=== PATIENT | female | born 1955 | race Caucasian/White ===

== ENCOUNTER → 2020-06-25 10:27 | Outpatient (CLI) | payer BC, OTHER, SELFPAY ==
--- NOTE | 2020-06-25 | DI.RAD.S_ITS ---
PROCEDURE: FL BARIUM SWALLOW W SPEECH INDICATIONS: Syncope and collapse,Unspecified foreign body in l COMPARISON: None. TECHNIQUE: Examination was conducted in conjunction with speech pathology per standard protocol. In the lateral projection, filming was performed of the patient swallowing. AP projection filming may also be performed with patient swallowing. COMPARISON: FINDINGS: Function: The oral preparatory phase appears normal, with proper containment. The subsequent oral propulsive appears delayed. No laryngotracheal penetration or aspiration. No pathologic vallecular pooling. Morphology: No cricopharyngeal bar is identified. No cervical esophageal webs. No Zenker's diverticulum. No strictures. IMPRESSION: No aspiration identified. Dictated by: Tomi Peguero M.D. on 06/25/2020 at 15:28 Approved by: Tomi Peguero M.D. on 06/25/2020 at 15:29
--- NOTE | 2020-06-25 16:32 | ST.SWALLOW ---
Visit Care Team Role Provider Type Michelle Nuñez DO Primary Care Provider Non-Staff Referring Provider Specialty: Family Practice Address: [address], [place], [address] Email: Bryant Leyva MD Attending Provider Non-Staff Specialty: Pulmonology Address: [address] [place] [address] [address], [place], [address] Email: Modified Barium Swallow Study DITCH INSPECTOR Modified Barium Swallow Study Start: 06/25/20 12:41 Freq: Status: Active Protocol: Document 06/25/20 12:47 LNK (Rec: 06/25/20 13:34 LNK [id number]) Modified Barium Swallow Study Total Time Visit Start Time 11:30 Visit Stop Time 12:00 Total Visit Minutes 30 Visit Information Visit Number 1 Plan of Care Dates 06/25/20-09/25/20 Insurance Information Medicare/ for Life Referral Referring Physician Dr. Bryant Leyva Reason for Referral dysphagia/choking Setting Setting Outpatient Care Patient Information Identification Type Name,Date of Patient History Pt is a 65 year old female referred for Modified Barium Swallow Study (MBSS). She was referred by her field sales consultant , Bryant Leyva MD. According to the rerords provided and interview with the pt, she has a history if choking on foods over the past year or more. Once, while eating steak , she needed to have the Heimlich procedure done to expel the steak. On another occasion, she was eating eggs, began choking and passed out. There have been instances where the pt reported coughing so hard she becomes incontinent of urine and stool . Other medical history included shortness of breath and wheezing, treated with inhalers. pt does not feel the inhalers are effective. During pt interview she noted that she has GERD and takes omneprozol. 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 Research described a high Mallapati score being highly correlated with GERD. pt also has a history of smoking x 15 years ago; she stopped smoking 30 years ago. Subjective Observations Pt was seated in the fluoroscopy chair. Instructions and procedures were described to the pt who agreed to proceed. Patient Positioning Position View A/P Imaging Lateral View Textures Administered Trials Presented Thin Liquid via Spoon,Thin Liquid via Cup,Thin Liquid via Straw,Pudding Thick Liquid via Spoon,Regular Textures, Barium Tablet Oral Phase Source: MBSIMP (TM) (C) Bolus Specific Scoring Grid Lip Closure WFL Tongue Control During Bolus Hold WFL Bolus Prep/Mastication WFL Bolus Transport/Lingual Motion WFL A/P Lingual Propulsion Delay Yes: Inconsistent. Increased bulk resulted in A/P propulsion delay Number of Seconds Delayed (seconds) ~1-3s Oral Residue Minimal Impairment Residue Clearing WFL Nasal Regurgitation No Additional Oral Phase Observations Informal observation indicated structures and function to be grossly WFL. Pharyngeal Phase Source: MBSIMP (TM) (C) Bolus Specific Scoring Grid Delayed Initiation of Pharyngeal Swallow Yes: premature spillage to the pyriform sinuses past open airway Number of Seconds Delayed (seconds) ~1+s Soft Palate Elevation WFL Tongue Base Strength/Range of Motion Moderate Impairment Residue Along the Tongue Base Yes: trace to minimal Clearance of Residue Along Tongue Base WFL Laryngeal Elevation Moderate Impairment Anterior Hyoid Movement Moderate Impairment Epiglottic Range of Motion Moderate Impairment Vallecular Residue Yes Clearance of Vallecular Residue Mild Impairment Pharyngeal Stripping Wave Minimal Impairment Posterior Pharyngeal Wall Residue Yes Clearance of Posterior Pharyngeal Wall Mild Impairment Residue Upper Esophageal Sphincter Opening WFL Residue in the Pyriform Sinuses Yes Clearance of Residue in the Pyriform Mild Impairment Sinuses Esophageal Clearance Upright Position WFL Pharyngoesophageal Backflow Observed No Additional Pharyngeal Phase Observations Premature spillage from the oral cavity to the pyriform sinuses was observed frequently. Residue/pooling was observed in the valeculla, the tongue base, the posterior pharyngeal wall and the pyriform sinuses. The bolus head would flow to and past the valeculla over an open airway to the pyriform sinuses before the swallow was initiated. Tongue base weakness was observed with incomplete elevation of the larynx and minimal forward movement of the hyoid, which leads to minimal to incomplete inversion of the epiglottis. Inconsistent epiglottal inversion was seen with the tip of the epiglottis against the posterior pharyngeal wall, restricting range of the epiglottic inversion, diminishing airway protection. No airway penetration or aspiration was observed. The pt did c/o shortness of breath throughout the assessment. A/P View Textures Administered Trials Presented Thin Liquid via Cup,Barium Tablet A/P View Observations Additional Observations Pt had significant difficulty with the tablet in the A-P position. She did not have difficulty in the lateral position. For the A-P view, the pt placed the tablet in her mouth, took water and was unable to propel the tablet to the pharynx. She tried 2 times without success, then threw her head back in an effort to force the tablet toward the pharynx. Once the tablet was in the pharynx, she was able to swallow it without difficulty. Clinical Impressions Findings The pt presented with moderately severe pharyngeal phase swallow characterized by premature spillage to the pyriform sinuses over an open airway, weak tongue base and incomplete hyolaryngeal movement up and forward. This resulted in incomplete and inconsistent epiglottic inversion, increasing risk of aspiration. The pt became more short of breath as the evaluation continued, also increasing aspiration risk. At the end of the MBSS, she had significant difficulty with A- P propulsion of the tablet resulting in her head toss backward to move the tablet to the pharynx. This has potential to cause aspiration, especially if her airway remains open. It is unknown if the pt's hx of class IV Mallapati airway and/or her large tongue is related to her pharyngeal function and/or her choking incidents. She noted that her choking incidents occur about once every couple of months. No change in diet is recommended. Linguapharyngeal exercises are recommended to increase strength for base of tongue compression and hyolaryngeal elevation with subsequent improvement of epiglottic inversion/airway protection. Patient Appropriate for Therapy Yes Recommendations Aspiration Precautions Recommended Precautions Small Bites/Sips,Effortful Swallow,Double Swallow Additional Precautions eat slowly, mindfully without distractions Treatment Plan Therapy Recommendations Outpatient Speech Therapy,Base of Tongue Exercises, Compensatory Strategy Education Compensatory Strategies Recommendations Double Swallow,Supraglottic Swallow Short Term Goals Pt education regarding the results of her MBSS and the anatomy and physiology of swallowing as well as different aspiration risks. The pt will participate in tongue base exercises daily in order to strengthen and elevate the hyolaryngeal system for safer swallowing. The pt will consume foods/ liquids mindfully with reduced distractions (talking, laughing, watching tv, etc) to increase awareness of swallowing during PO intake. Half-Way Goals The pt will report minimal to no incidents of choking.
== END ==
PROVIDERS: PCP Family Medicine; Referring Provider Family Medicine; Visit Provider Internal Medicine Pulmonary Disease
DX: R55 Syncope and collapse (principal); T17.308A Unspecified foreign body in larynx causing other injury, initial encounter
CPT/HCPCS: 74230; 92611

== ENCOUNTER → 2023-12-31 11:59 | Outpatient (CLI) | payer MEDICARE, OTHER, SELFPAY ==
--- NOTE | 2023-12-31 12:01 | DI.CT.S_ITS ---
PROCEDURE: CT HEAD/BRAIN WO CON INDICATIONS: Dizziness and giddiness TECHNIQUE: Noncontrast 4.5 mm thick angled axial sections acquired from the foramen magnum to the vertex, with coronal and sagittal reformats. For radiation dose reduction, the following was used: automated exposure control, adjustment of mA and/or kV according to patient size. COMPARISON: None. FINDINGS: Image quality: Diagnostic. CSF spaces: Basal cisterns are patent. No extra-axial fluid collections. Ventricles are normal in size and shape. Brain: No midline shift. No intracranial masses or hemorrhage. Mckinnon-white matter interface is normal. Skull and face: Calvarium and visualized facial bones are intact, without suspicious lesions. Sinuses: Visualized sinuses and mastoids are clear. IMPRESSION: No acute intracranial pathology. Approved by: Ginger Headley M.D. on 01/01/2024 at 22:15
== END ==
PROVIDERS: PCP Nurse Practitioner Family; Referring Provider Internal Medicine Cardiovascular Disease; Visit Provider Internal Medicine Cardiovascular Disease
DX: R42 Dizziness and giddiness (principal); I10 Essential (primary) hypertension; I42.9 Cardiomyopathy, unspecified; I51.89 Other ill-defined heart diseases; R60.0 Localized edema
CPT/HCPCS: 70450